=== PATIENT | female | born 2000 | race Two or more races ===

== ENCOUNTER 2024-01-05 13:21 | Emergency (ER) | payer MEDICAID ==
[~2024-01-05] VITALS: Ht 162.6 cm; Wt 53.0 kg
[2024-01-05 13:30] VITALS: TEMP 98.8
[2024-01-05 15:15] LABS: APPEARANCE,URINE CLEAR (CLEAR); BILIRUBIN,URINE NEGATIVE (NEGATIVE); COLOR,URINE LIGHT YELLOW (YELLOW); GLUCOSE, URINE (UA) NEGATIVE (NEGATIVE); KETONES,URINE 40-60 mg/dL (NEGATIVE); LEUKOCYTE ESTERASE ,URINE NEGATIVE (NEGATIVE); NITRATE,URINE NEGATIVE (NEGATIVE); OCCULT BLOOD,URINE NEGATIVE (NEGATIVE); PROTEIN,URINE TRACE mg/dL (NEGATIVE); SPECIFIC GRAVITIY, URINE 1.024 (1.003-1.030); UROBILINOGEN,URINE <=1.0 mg/dL (<=1.0)
[2024-01-05 15:21] LABS: HCG,QUAL URINE POSITIVE (NEGATIVE)
[2024-01-05] MEDS ORDERED: BETA50CR5 TP (15:37)
[2024-01-05 15:39] VITALS: BP 126/74; PULSE 93; RESP 16
== END 2024-01-05 16:01 | disposition home or self-care (01) ==
LOC: EMS 13:30
DX: O99.711 Diseases of the skin and subcutaneous tissue complicating pregnancy, first trimester (principal); L30.9 Dermatitis, unspecified; Z3A.01 Less than 8 weeks gestation of pregnancy
CPT/HCPCS: 81003; 84703; 99283